=== PATIENT | female | born 1935 | race Caucasian/White ===

== ENCOUNTER → 2018-02-08 | Outpatient (CLI) | payer OTHER ==
[~2018-02-08] MED LIST: ATORVASTATIN CA40 M1 PO; DARVOCET N 1001 TAB PO; DYAZIDE 37.5-21 EACH PO; HYDROCODON-ACE1 EAC1 PO; HYDROCODONE BIT1 T11 PO; METFORMIN ER500 MG PO; PRAVACHOL20 MG PO; PRINIVIL20 MG PO; VALACYCLOVIR H500 MG PO; VOLTAREN50 M1 PO
--- NOTE | ~2018-02-08 | ST ---
[place], [place] EXERCISE STRESS TEST REPORT NAME: BALDO CASIANO UNIT #: [id number] ROOM: DOCTOR: LUIS BARBOUR,RANGEL BIRTHDATE: [birth year] DOS: 02/08/2018 PHARMACOLOGIC STRESS TEST INDICATIONS: Preoperative evaluation prior to knee surgery. PROCEDURE: The patient was given a rapid infusion of regadenoson 0.4 mg intravenously followed by a saline flush. She felt breathless. Her resting heart rate of 73 maisha to 102. The resting blood pressure of 122/72 fell to 120/58. Aside from breathlessness, she had no other symptoms and her symptoms resolved spontaneously. Forty seconds after the infusion of regadenoson, she was given radionuclide intravenously. IMPRESSION: 1. Well tolerated infusion of regadenoson. 2. Radionuclide administered. Please see the separate imaging report for further details of the patient's stress test results. RANGEL SMITH MD CM:STRESS:EXERCISE STRESS TEST REPORT [id number] RANGEL SMITH MD
== END | disposition home or self-care (01) ==
LOC: CARD 03:34
DX: Z01.818 Encounter for other preprocedural examination (principal); R07.9 Chest pain, unspecified; R53.81 Other malaise

== ENCOUNTER → 2018-10-10 | Outpatient (CLI) | payer OTHER | END | disposition home or self-care (01) | LOC: MAMMO 17:05 | DX: Z12.31 Encounter for screening mammogram for malignant neoplasm of breast (principal) ==